=== PATIENT | male | born 1935 | race Caucasian/White ===

== ENCOUNTER 2022-01-30 21:24 | Inpatient (IN) ==
[2022-01-30] MEDS ORDERED: SODIUM CHLORIDE 0.9% 1,000 ML IV STA ×2 (22:03→23:22)
[2022-01-30 22:48] LABS: Basophils % 0.2 % (0.0-0.8); Hematocrit 46.2 VOL% (42.0-52.0); Hemoglobin 15.1 GM/DL (14.0-18.0); Immature Granulocytes % 0.7 %; Immature Granulocytes Absolute 0.09 #; Lymphocytes # 0.5 10*3/uL (1.4-4.0); Lymphocytes % 3.8 % (21.2-54.2); Mean Corpuscular HGB Conc 32.7 GM/DL (32-36); Mean Corpuscular Volume 95.1 FL (87-102); Mean Platelet Volume 10.2 FL (9.6-12.0); Monocytes # 0.9 10*3/uL (0.11-0.8); Neutrophils % 88.3 % (38.7-73.9); Platelet Count 172 T/CUMM (130-400); Red Blood Count 4.86 MC/CUMM (3.8-5.5); Red Cell Distribution Width 13.2 % (9.3-17.3); White Blood Count 12.8 T/CUMM (4-12)
[2022-01-30 22:50] LABS: Bilirubin,Urine Moderate mg/dL (Negative); Blood, Urine Large mg/dL (Negative); Glucose,Urine (UA) Negative (Negative); Ketones,Urine 80 mg/dL (Negative); Nitrite,Urine Negative (Negative); Protein,Urine 100 mg/dL (Negative); Urine Appearance Clear (Clear); Urine Color Yellow (Yellow); Urine Specific Gravity >= 1.030 (1.001-1.035); Urine pH 5.5 (4.5-8.0)
[2022-01-30 22:54] LABS: Bacteria,Urine Occasional /HPF (Few); Hyaline Casts,Urine 34 /LPF (0-3); Mucus,Urine Occasional /LPF (Occasional); RBC,Urine 2 /HPF (0-4); Squamous Epithelial Cell,Urine Occasional /HPF (0-10)
[2022-01-30 23:00] LABS: INR 1.1; PT Patient Result 12.3 SECS (10.1-12.1)
[2022-01-30 23:04] LABS: Barbiturates Screen,Urine Negative (Negative); Benzodiazepines Screen,Urine Negative (Negative); Cannabinoid Screen,Urine Negative (Negative); Opiate Screen,Urine Negative (Negative); Phencyclidine Screen,Urine Negative (Negative)
[2022-01-30 23:06] LABS: Lymphocytes 4 % (20-55); Total Cells Counted 100
[2022-01-30 23:07] LABS: Burr Cells 1+; Platelet Estimate Adequate
[2022-01-30 23:21] LABS: Alanine Aminotransferase 54 U/L (16-61); Albumin 3.2 G/DL (3.4-5.0); Alkaline Phosphatase 83 U/L (45-117); Aspartate Amino Transferase 133 U/L (0-37); Blood Urea Nitrogen 36 MG/DL (7-18); CKMB % 3.32 %; Calcium 8.6 MG/DL (8.5-10.1); Carbon Dioxide 16 MMOL/L (21-32); Chloride 111 MMOL/L (98-107); Glucose 149 MG/DL (74-106); Osmolality,Calculated 298.7 MOS/KG (273-304); Potassium 4.4 MMOL/L (3.5-5.1); Sodium 145 MMOL/L (136-145); Total Protein 6.1 G/DL (6.4-8.2)
[2022-01-31] MEDS ORDERED: hydrALAZINE 20 MG/1 ML VIAL IV PRN (00:14)
[2022-01-31] MEDS ORDERED: ONDANSETRON 4 MG/2 ML VIAL IV PRN (00:14)
[2022-01-31] MEDS ORDERED: MORPHINE 2 MG/1 ML SYRINGE IV PRN (00:14)
[2022-01-31] MEDS ORDERED: ACETAMINOPHEN 325 MG TABLET PO PRN (00:14)
[2022-01-31] MEDS ORDERED: GLUCAGON 1 MG VIAL IM PRN (00:14)
[2022-01-31] MEDS ORDERED: DEXTROSE 10% 250 ML BAG IV PRN (00:20)
[2022-01-31] MEDS ORDERED: LACTATED RINGERS 1,000 ML IV SCH (00:30)
[2022-01-31 05:47] LABS: Basophils % 0.1 % (0.0-0.8); Hematocrit 42.2 VOL% (42.0-52.0); Hemoglobin 13.5 GM/DL (14.0-18.0); Immature Granulocytes % 0.6 %; Immature Granulocytes Absolute 0.07 #; Lymphocytes # 0.7 10*3/uL (1.4-4.0); Lymphocytes % 5.9 % (21.2-54.2); Mean Corpuscular Volume 95.3 FL (87-102); Mean Platelet Volume 10.3 FL (9.6-12.0); Monocytes # 0.9 10*3/uL (0.11-0.8); Monocytes % 7.8 % (1.7-12.7); Neutrophils % 85.6 % (38.7-73.9); Platelet Count 159 T/CUMM (130-400); Red Blood Count 4.43 MC/CUMM (3.8-5.5); Red Cell Distribution Width 13.2 % (9.3-17.3); White Blood Count 11.1 T/CUMM (4-12)
[2022-01-31 06:37] LABS: Calcium 8.1 MG/DL (8.5-10.1); Osmolality,Calculated 297.8 MOS/KG (273-304); Potassium 4.4 MMOL/L (3.5-5.1)
[2022-01-31] MEDS: PANTOPRAZOLE 40 MG TABLET PO SCH (09:57)
[2022-01-31] MEDS: ENOXAPARIN 40 MG/0.4 ML SYRINGE SUBCUT SCH (09:57)
[2022-01-31] MEDS: INSULIN LISPRO 100 UNIT/ML SUBCUT SCH ×4 (09:58→20:08)
[2022-01-31] MEDS: SODIUM BICARB INJ 50 MEQ in SODIUM CHLORIDE 0.45% 1,000 ML IV SCH ×2 (11:31→23:05)
[2022-02-01 04:25] LABS: Basophils % 0.3 % (0.0-0.8); Eosinophils # 0.1 10*3/uL (0.0-0.87); Eosinophils % 1.3 % (0.00-10.9); Hematocrit 35.7 VOL% (42.0-52.0); Hemoglobin 11.8 GM/DL (14.0-18.0); Immature Granulocytes % 0.4 %; Immature Granulocytes Absolute 0.03 #; Lymphocytes % 12.1 % (21.2-54.2); Mean Corpuscular HGB Conc 33.1 GM/DL (32-36); Mean Corpuscular Volume 93.2 FL (87-102); Mean Platelet Volume 9.9 FL (9.6-12.0); Monocytes # 0.6 10*3/uL (0.11-0.8); Monocytes % 7.1 % (1.7-12.7); Neutrophils % 78.8 % (38.7-73.9); Platelet Count 136 T/CUMM (130-400); Red Blood Count 3.83 MC/CUMM (3.8-5.5); Red Cell Distribution Width 13.2 % (9.3-17.3); White Blood Count 7.9 T/CUMM (4-12)
[2022-02-01 04:45] LABS: Calcium 8.3 MG/DL (8.5-10.1); Osmolality,Calculated 293.1 MOS/KG (273-304); Potassium 3.1 MMOL/L (3.5-5.1)
[2022-02-01 04:50] LABS: Folate 11.66 NG/ML (5.38-24.0); Vitamin B12 981 PG/ML (211-911)
[2022-02-01 05:29] LABS: Sedimentation Rate-Westergren 32 MM/HR (0-20)
[2022-02-01] MEDS ORDERED: POTASSIUM CHLORIDE 20 MEQ TABLET PO ONE (08:36)
[2022-02-01 09:12] LABS: Hemoglobin A1 (Alkaline) 97.8 % (96.5-98.5); Hemoglobin A2 (Alkaline) 2.2 % (1.5-3.5)
[2022-02-01] MEDS: PANTOPRAZOLE 40 MG TABLET PO SCH (10:25)
[2022-02-01] MEDS: ENOXAPARIN 40 MG/0.4 ML SYRINGE SUBCUT SCH (10:26)
[2022-02-01] MEDS: INSULIN LISPRO 100 UNIT/ML SUBCUT SCH ×4 (10:31→21:00)
[2022-02-01] MEDS: CHOLECALCIFEROL 1,000 UNIT TABLET PO SCH (15:24)
[2022-02-01] MEDS: SODIUM BICARB INJ 50 MEQ in SODIUM CHLORIDE 0.45% 1,000 ML IV SCH ×2 (17:58→21:00)
[2022-02-01] MEDS: carvediloL 12.5 MG TABLET PO SCH (21:00)
[2022-02-02] MEDS: SODIUM BICARB INJ 50 MEQ in SODIUM CHLORIDE 0.45% 1,000 ML IV SCH ×2 (04:28→19:44)
[2022-02-02 05:28] LABS: Basophils % 0.5 % (0.0-0.8); Eosinophils # 0.2 10*3/uL (0.0-0.87); Eosinophils % 2.5 % (0.00-10.9); Hematocrit 37.8 VOL% (42.0-52.0); Hemoglobin 12.3 GM/DL (14.0-18.0); Immature Granulocytes % 0.8 %; Immature Granulocytes Absolute 0.05 #; Lymphocytes # 0.8 10*3/uL (1.4-4.0); Lymphocytes % 12.3 % (21.2-54.2); Mean Corpuscular HGB Conc 32.5 GM/DL (32-36); Mean Corpuscular Volume 92.4 FL (87-102); Monocytes # 0.5 10*3/uL (0.11-0.8); Monocytes % 8.1 % (1.7-12.7); Neutrophils % 75.8 % (38.7-73.9); Platelet Count 143 T/CUMM (130-400); Red Blood Count 4.09 MC/CUMM (3.8-5.5); Red Cell Distribution Width 13.1 % (9.3-17.3); White Blood Count 6.3 T/CUMM (4-12)
[2022-02-02 05:46] LABS: Calcium 7.9 MG/DL (8.5-10.1); Potassium 3.4 MMOL/L (3.5-5.1)
[2022-02-02] MEDS ORDERED: POTASSIUM CHLORIDE 20 MEQ TABLET PO ONE (07:34)
[2022-02-02] MEDS: ASPIRIN EC 81 MG TABLET PO SCH (09:02)
[2022-02-02] MEDS: ENOXAPARIN 40 MG/0.4 ML SYRINGE SUBCUT SCH (09:02)
[2022-02-02] MEDS: PANTOPRAZOLE 40 MG TABLET PO SCH (09:02)
[2022-02-02] MEDS: carvediloL 12.5 MG TABLET PO SCH ×2 (09:02→21:28)
[2022-02-02] MEDS: CHOLECALCIFEROL 1,000 UNIT TABLET PO SCH (09:02)
[2022-02-02] MEDS: INSULIN LISPRO 100 UNIT/ML SUBCUT SCH ×4 (09:03→21:30)
[2022-02-03 05:27] LABS: Basophils % 0.8 % (0.0-0.8); Eosinophils # 0.2 10*3/uL (0.0-0.87); Eosinophils % 4.2 % (0.00-10.9); Hematocrit 35.2 VOL% (42.0-52.0); Hemoglobin 11.5 GM/DL (14.0-18.0); Immature Granulocytes % 0.8 %; Immature Granulocytes Absolute 0.04 #; Lymphocytes % 19.2 % (21.2-54.2); Mean Corpuscular HGB Conc 32.7 GM/DL (32-36); Mean Corpuscular Volume 93.9 FL (87-102); Mean Platelet Volume 10.2 FL (9.6-12.0); Monocytes # 0.6 10*3/uL (0.11-0.8); Monocytes % 12.3 % (1.7-12.7); Neutrophils % 62.7 % (38.7-73.9); Platelet Count 134 T/CUMM (130-400); Red Blood Count 3.75 MC/CUMM (3.8-5.5)
[2022-02-03 05:42] LABS: Calcium 7.6 MG/DL (8.5-10.1); Osmolality,Calculated 289.8 MOS/KG (273-304); Potassium 3.3 MMOL/L (3.5-5.1)
[2022-02-03] MEDS: ASPIRIN EC 81 MG TABLET PO SCH (09:26)
[2022-02-03] MEDS: ENOXAPARIN 40 MG/0.4 ML SYRINGE SUBCUT SCH (09:26)
[2022-02-03] MEDS: CHOLECALCIFEROL 1,000 UNIT TABLET PO SCH (09:26)
[2022-02-03] MEDS: INSULIN LISPRO 100 UNIT/ML SUBCUT SCH ×4 (09:26→22:20)
[2022-02-03] MEDS: carvediloL 12.5 MG TABLET PO SCH ×2 (09:26→22:13)
[2022-02-03] MEDS: PANTOPRAZOLE 40 MG TABLET PO SCH (09:27)
[2022-02-03] MEDS: DAPAGLIFLOZIN 5 MG TABLET PO SCH (09:27)
[2022-02-03] MEDS ORDERED: POTASSIUM CHLORIDE 20 MEQ TABLET PO ONE (09:31)
[2022-02-03] MEDS: RIVASTIGMINE 1.5 MG CAPSULE PO SCH (17:19)
[2022-02-03] MEDS ORDERED: POTASSIUM CHLORIDE 20 MEQ TABLET PO SCH (21:00)
[2022-02-03] MEDS: POTASSIUM CHLORIDE 20 MEQ TABLET PO SCH (22:13)
[2022-02-03] MEDS: DOCUSATE SODIUM 100 MG CAPSULE PO SCH (22:13)
[2022-02-04 05:21] LABS: Basophils % 0.6 % (0.0-0.8); Eosinophils # 0.3 10*3/uL (0.0-0.87); Eosinophils % 4.3 % (0.00-10.9); Hematocrit 38.5 VOL% (42.0-52.0); Hemoglobin 12.4 GM/DL (14.0-18.0); Immature Granulocytes Absolute 0.06 #; Lymphocytes % 15.9 % (21.2-54.2); Mean Corpuscular HGB Conc 32.2 GM/DL (32-36); Mean Corpuscular Volume 94.1 FL (87-102); Mean Platelet Volume 10.1 FL (9.6-12.0); Monocytes # 0.9 10*3/uL (0.11-0.8); Neutrophils % 64.2 % (38.7-73.9); Platelet Count 144 T/CUMM (130-400); Red Blood Count 4.09 MC/CUMM (3.8-5.5); White Blood Count 6.2 T/CUMM (4-12)
[2022-02-04 05:35] LABS: Calcium 8.5 MG/DL (8.5-10.1); Osmolality,Calculated 280.5 MOS/KG (273-304); Potassium 4.3 MMOL/L (3.5-5.1)
[2022-02-04] MEDS: DOCUSATE SODIUM 100 MG CAPSULE PO SCH ×2 (09:36→21:42)
[2022-02-04] MEDS: ASPIRIN EC 81 MG TABLET PO SCH (09:36)
[2022-02-04] MEDS: carvediloL 12.5 MG TABLET PO SCH ×2 (09:36→21:42)
[2022-02-04] MEDS: CHOLECALCIFEROL 1,000 UNIT TABLET PO SCH (09:36)
[2022-02-04] MEDS: POTASSIUM CHLORIDE 20 MEQ TABLET PO SCH ×2 (09:38→21:42)
[2022-02-04] MEDS: POLYETHYLENE GLYCOL POWDER 17 GM PACK PO SCH (09:38)
[2022-02-04] MEDS: PANTOPRAZOLE 40 MG TABLET PO SCH (09:38)
[2022-02-04] MEDS: INSULIN LISPRO 100 UNIT/ML SUBCUT SCH ×4 (09:38→21:42)
[2022-02-04] MEDS: DAPAGLIFLOZIN 5 MG TABLET PO SCH (09:38)
[2022-02-04] MEDS: SPIRONOLACTONE 25 MG TABLET PO SCH (09:38)
[2022-02-04] MEDS: DUTASTERIDE 0.5 MG CAPSULE PO SCH (09:38)
[2022-02-04] MEDS: ENOXAPARIN 40 MG/0.4 ML SYRINGE SUBCUT SCH (09:39)
[2022-02-04] MEDS: RIVASTIGMINE 1.5 MG CAPSULE PO SCH ×2 (11:13→17:58)
[2022-02-05 06:16] LABS: Basophils # 0.1 10*3/uL (0.0-0.2); Basophils % 0.9 % (0.0-0.8); Eosinophils # 0.3 10*3/uL (0.0-0.87); Eosinophils % 4.2 % (0.00-10.9); Hematocrit 38.7 VOL% (42.0-52.0); Hemoglobin 12.3 GM/DL (14.0-18.0); Immature Granulocytes % 2.2 %; Immature Granulocytes Absolute 0.15 #; Lymphocytes # 1.3 10*3/uL (1.4-4.0); Lymphocytes % 18.3 % (21.2-54.2); Mean Corpuscular HGB Conc 31.8 GM/DL (32-36); Mean Corpuscular Volume 94.4 FL (87-102); Mean Platelet Volume 10.1 FL (9.6-12.0); Monocytes % 14.3 % (1.7-12.7); Neutrophils % 60.1 % (38.7-73.9); Platelet Count 158 T/CUMM (130-400); Red Cell Distribution Width 12.9 % (9.3-17.3); White Blood Count 6.9 T/CUMM (4-12)
[2022-02-05 06:18] LABS: Calcium 8.4 MG/DL (8.5-10.1); Osmolality,Calculated 278.7 MOS/KG (273-304); Potassium 4.5 MMOL/L (3.5-5.1)
[2022-02-05] MEDS: CHOLECALCIFEROL 1,000 UNIT TABLET PO SCH (09:41)
[2022-02-05] MEDS: ENOXAPARIN 40 MG/0.4 ML SYRINGE SUBCUT SCH (09:41)
[2022-02-05] MEDS: SPIRONOLACTONE 25 MG TABLET PO SCH (09:41)
[2022-02-05] MEDS: DAPAGLIFLOZIN 10 MG TABLET PO SCH (09:41)
[2022-02-05] MEDS: POTASSIUM CHLORIDE 20 MEQ TABLET PO SCH ×2 (09:41→20:20)
[2022-02-05] MEDS: carvediloL 12.5 MG TABLET PO SCH ×2 (09:41→20:20)
[2022-02-05] MEDS: DOCUSATE SODIUM 100 MG CAPSULE PO SCH ×2 (09:42→20:20)
[2022-02-05] MEDS: RIVASTIGMINE 1.5 MG CAPSULE PO SCH ×2 (09:42→17:12)
[2022-02-05] MEDS: POLYETHYLENE GLYCOL POWDER 17 GM PACK PO SCH (09:42)
[2022-02-05] MEDS: PANTOPRAZOLE 40 MG TABLET PO SCH (09:44)
[2022-02-05] MEDS: ASPIRIN EC 81 MG TABLET PO SCH (09:44)
[2022-02-05] MEDS: DUTASTERIDE 0.5 MG CAPSULE PO SCH (09:45)
[2022-02-05] MEDS: INSULIN LISPRO 100 UNIT/ML SUBCUT SCH ×4 (12:26→20:36)
[2022-02-06 05:42] LABS: Basophils # 0.1 10*3/uL (0.0-0.2); Basophils % 1.1 % (0.0-0.8); Eosinophils # 0.3 10*3/uL (0.0-0.87); Eosinophils % 3.7 % (0.00-10.9); Hematocrit 40.6 VOL% (42.0-52.0); Hemoglobin 12.8 GM/DL (14.0-18.0); Immature Granulocytes % 4.9 %; Immature Granulocytes Absolute 0.39 #; Lymphocytes # 1.4 10*3/uL (1.4-4.0); Lymphocytes % 17.9 % (21.2-54.2); Mean Corpuscular HGB Conc 31.5 GM/DL (32-36); Mean Corpuscular Volume 94.6 FL (87-102); Mean Platelet Volume 9.8 FL (9.6-12.0); Monocytes # 1.1 10*3/uL (0.11-0.8); Monocytes % 13.6 % (1.7-12.7); Neutrophils % 58.8 % (38.7-73.9); Platelet Count 176 T/CUMM (130-400); Red Blood Count 4.29 MC/CUMM (3.8-5.5); White Blood Count 7.9 T/CUMM (4-12)
[2022-02-06 06:03] LABS: Calcium 8.6 MG/DL (8.5-10.1); Osmolality,Calculated 280.5 MOS/KG (273-304); Potassium 4.7 MMOL/L (3.5-5.1)
[2022-02-06] MEDS: ASPIRIN EC 81 MG TABLET PO SCH (08:27)
[2022-02-06] MEDS: PANTOPRAZOLE 40 MG TABLET PO SCH (08:27)
[2022-02-06] MEDS: RIVASTIGMINE 1.5 MG CAPSULE PO SCH ×2 (08:27→16:27)
[2022-02-06] MEDS: DOCUSATE SODIUM 100 MG CAPSULE PO SCH ×2 (08:27→21:21)
[2022-02-06] MEDS: CHOLECALCIFEROL 1,000 UNIT TABLET PO SCH (08:27)
[2022-02-06] MEDS: INSULIN LISPRO 100 UNIT/ML SUBCUT SCH ×4 (08:27→21:23)
[2022-02-06] MEDS: SPIRONOLACTONE 25 MG TABLET PO SCH (08:27)
[2022-02-06] MEDS: carvediloL 12.5 MG TABLET PO SCH ×2 (08:27→21:21)
[2022-02-06] MEDS: POLYETHYLENE GLYCOL POWDER 17 GM PACK PO SCH (08:28)
[2022-02-06] MEDS: DAPAGLIFLOZIN 10 MG TABLET PO SCH (08:28)
[2022-02-06] MEDS: DUTASTERIDE 0.5 MG CAPSULE PO SCH (08:28)
[2022-02-06] MEDS: ENOXAPARIN 40 MG/0.4 ML SYRINGE SUBCUT SCH (08:28)
[2022-02-06] MEDS: POTASSIUM CHLORIDE 20 MEQ TABLET PO SCH ×2 (08:28→21:21)
[2022-02-07] MEDS: INSULIN LISPRO 100 UNIT/ML SUBCUT SCH ×4 (10:07→22:00)
[2022-02-07] MEDS: POLYETHYLENE GLYCOL POWDER 17 GM PACK PO SCH (10:08)
[2022-02-07] MEDS: DAPAGLIFLOZIN 10 MG TABLET PO SCH (10:08)
[2022-02-07] MEDS: ASPIRIN EC 81 MG TABLET PO SCH (10:09)
[2022-02-07] MEDS: CHOLECALCIFEROL 1,000 UNIT TABLET PO SCH (10:09)
[2022-02-07] MEDS: DUTASTERIDE 0.5 MG CAPSULE PO SCH (10:09)
[2022-02-07] MEDS: SPIRONOLACTONE 25 MG TABLET PO SCH (10:10)
[2022-02-07] MEDS: POTASSIUM CHLORIDE 20 MEQ TABLET PO SCH ×2 (10:10→22:27)
[2022-02-07] MEDS: DOCUSATE SODIUM 100 MG CAPSULE PO SCH ×2 (10:10→22:00)
[2022-02-07] MEDS: ENOXAPARIN 40 MG/0.4 ML SYRINGE SUBCUT SCH (10:10)
[2022-02-07] MEDS: RIVASTIGMINE 1.5 MG CAPSULE PO SCH (10:10)
[2022-02-07] MEDS: carvediloL 12.5 MG TABLET PO SCH ×2 (10:11→22:00)
[2022-02-07] MEDS: PANTOPRAZOLE 40 MG TABLET PO SCH (10:11)
[2022-02-07] MEDS: RIVASTIGMINE 3 MG CAPSULE PO SCH (18:16)
[2022-02-08] MEDS: DAPAGLIFLOZIN 10 MG TABLET PO SCH (09:12)
[2022-02-08] MEDS: RIVASTIGMINE 3 MG CAPSULE PO SCH (09:12)
[2022-02-08] MEDS: SPIRONOLACTONE 25 MG TABLET PO SCH (09:12)
[2022-02-08] MEDS: DUTASTERIDE 0.5 MG CAPSULE PO SCH (09:13)
[2022-02-08] MEDS: carvediloL 12.5 MG TABLET PO SCH (09:13)
[2022-02-08] MEDS: DOCUSATE SODIUM 100 MG CAPSULE PO SCH (09:13)
[2022-02-08] MEDS: CHOLECALCIFEROL 1,000 UNIT TABLET PO SCH (09:13)
[2022-02-08] MEDS: POTASSIUM CHLORIDE 20 MEQ TABLET PO SCH (09:13)
[2022-02-08] MEDS: INSULIN LISPRO 100 UNIT/ML SUBCUT SCH ×2 (09:13→11:17)
[2022-02-08] MEDS: ASPIRIN EC 81 MG TABLET PO SCH (09:13)
[2022-02-08] MEDS: PANTOPRAZOLE 40 MG TABLET PO SCH (09:13)
[2022-02-08] MEDS: ENOXAPARIN 40 MG/0.4 ML SYRINGE SUBCUT SCH (09:14)
[2022-02-08] MEDS: POLYETHYLENE GLYCOL POWDER 17 GM PACK PO SCH (09:14)
[2022-02-08 11:06] VITALS: BP 124/77
== END 2022-02-08 11:21 | disposition swing bed (61) | DRG 682 ==
LOC: EDUNIT# → EDBD → N.ED 21:24 → N.TELES 01-31 00:14
PROVIDERS: ADMIT Hospitalist; ATTEND Hospitalist